=== PATIENT | male | born 1975 | race Caucasian/White ===

== ENCOUNTER 2017-02-18 09:55 | Emergency (ER) | payer SELFPAY ==
[~2017-02-18] VITALS: Ht 175.3 cm; Wt 70.0 kg
[2017-02-18 09:56] VITALS: BP 129/80; PULSE 110; RESP 20; TEMP 98.3; O2SAT 98
[2017-02-18] MEDS ORDERED: SODIUM CHLOR 0.9% 1000 ML INJ 1,000 ML IV ONE (10:53)
--- NOTE | 2017-02-18 10:55 | PD ---
HPI Chief Complaint: Flank/Kidney Pain Time Seen by Provider: 10:47 Travel History International Travel<30 days: No Contact w/Intl Traveler<30days: No Traveled to known affect area: No History of Present Illness HPI 41-year-old male here with bilateral flank pain. Symptoms started spontaneously last night while he was sleeping. The pain is a sharp pain that is constant, no aggravating or alleviating factors. Associated with some hematuria, nausea. He has had multiple kidney stones in the past, one time requiring lithotripsy. This feels similar. He has not used any medication for symptom relief. He has no other complaints. PFS Past Medical History ?: Not Social History Alcohol Use: No Tobacco Use: Yes Allergies-Medications (Allergen,Severity, Reaction): Coded Allergies: Nonsteroidal Anti-Inflammatory Agts (Verified Allergy, Unknown, 02/18/17) Reported Meds & Prescriptions Reported Meds & Active Scripts Active No Active Prescriptions or Reported Medications Review of Systems Except as stated in HPI: all other systems reviewed are Neg Physical Exam Narrative GENERAL: Well-developed well-nourished male in no acute distress SKIN: Warm and dry. HEAD: Atraumatic. Normocephalic. EYES: Pupils equal and round. No scleral icterus. No injection or drainage. ENT: No nasal bleeding or discharge. Mucous membranes pink and moist. NECK: Trachea midline. No JVD. CARDIOVASCULAR: Regular rate and rhythm. No murmur appreciated. RESPIRATORY: No accessory muscle use. Clear to auscultation. Breath sounds equal bilaterally. GASTROINTESTINAL: Abdomen soft, non-tender, nondistended. Hepatic and splenic margins not palpable. MUSCULOSKELETAL: No obvious deformities. Bilateral CVA tenderness. No tenderness to palpation along the thoracic or lumbar midline spine. NEUROLOGICAL: Awake and alert. No obvious cranial nerve deficits. Motor grossly within normal limits. Normal speech. Data Data Last Documented VS Vital Signs Date Time Temp Pulse Resp B/P Pulse Ox O2 Delivery O2 Flow Rate FiO2 02/18/17 11:00 92 16 124/75 100 Room Air 02/18/17 09:56 98.3 Orders Urinalysis - C+S If Indicated (02/18/17 10:30) Complete Blood Count With Diff (02/18/17 10:53) Comprehensive Metabolic Panel (02/18/17 10:53) Ct Abd/Pel W/O Iv Contrast (02/18/17 10:53) Iv Access Insert/Monitor (02/18/17 10:53) Morphine Inj (Morphine Inj) (02/18/17 11:00) Ondansetron Inj (Zofran Inj) (02/18/17 11:00) Sodium Chlor 0.9% 1000 Ml Inj (Ns 1000 M (02/18/17 10:53) Labs Laboratory Tests Test 02/18/17 02/18/17 10:40 12:40 Urine Color YELLOW Urine Turbidity CLEAR Urine pH 6.0 Urine Specific Wilmot 1.019 Urine Protein TRACE mg/dL Urine Glucose (UA) NEG mg/dL Urine Ketones 10 mg/dL Urine Occult Blood MOD Urine Nitrite NEG Urine Bilirubin NEG Urine Urobilinogen LESS THAN 2.0 MG/DL Urine Leukocyte Esterase NEG Urine RBC 140 /hpf Urine WBC 7 /hpf Urine Bacteria RARE /hpf Urine Mucus FEW /lpf Microscopic Urinalysis Comment CULT NOT INDICATED White Blood Count 7.9 TH/MM3 Red Blood Count 4.41 MIL/MM3 Hemoglobin 14.2 GM/DL Hematocrit 42.0 % Mean Corpuscular Volume 95.2 FL Mean Corpuscular Hemoglobin 32.1 PG Mean Corpuscular Hemoglobin 33.7 % Concent Red Cell Distribution Width 13.5 % Platelet Count 239 TH/MM3 Mean Platelet Volume 8.5 FL Neutrophils (%) (Auto) 82.8 % Lymphocytes (%) (Auto) 12.1 % Monocytes (%) (Auto) 4.4 % Eosinophils (%) (Auto) 0.4 % Basophils (%) (Auto) 0.3 % Neutrophils # (Auto) 6.5 TH/MM3 Lymphocytes # (Auto) 1.0 TH/MM3 Monocytes # (Auto) 0.3 TH/MM3 Eosinophils # (Auto) 0.0 TH/MM3 Basophils # (Auto) 0.0 TH/MM3 CBC Comment DIFF FINAL Differential Comment Sodium Level 139 MEQ/L Potassium Level 4.4 MEQ/L Chloride Level 105 MEQ/L Carbon Dioxide Level 26.1 MEQ/L Anion Gap 8 MEQ/L Blood Urea Nitrogen 13 MG/DL Creatinine 0.96 MG/DL Estimat Glomerular Filtration 87 ML/MIN Rate Random Glucose 98 MG/DL Calcium Level 9.1 MG/DL Total Bilirubin 1.4 MG/DL Aspartate Amino Transf 14 U/L (AST/SGOT) Alanine Aminotransferase 15 U/L (ALT/SGPT) Alkaline Phosphatase 98 U/L Total Protein 8.4 GM/DL Albumin 4.1 GM/DL [facility] Medical Decision Making Medical Screen Exam Complete: Yes Emergency Medical Condition: Yes Medical Record Reviewed: Yes Differential Diagnosis Renal stone, hydronephrosis, pyelonephritis, muscle spasm Narrative Course 41-year-old male with one-day history of bilateral flank pain, nausea. He has a history of renal stones the past, once requiring lithotripsy. Plan is for basic lab work, CT abdomen and pelvis, IV fluids, pain medication, antiemetics. Lab work and imaging studies have been reviewed. His urinalysis reveals large hematuria. Otherwise his laboratory was unremarkable. CT of the abdomen and pelvis reveals a nonobstructing small right kidney stone. No evidence of an obstructing kidney stone or hydronephrosis that could be the etiology of his bilateral flank pain. Of note, his [facility] records reveals recent narcotic prescriptions including a 120 tablet prescription of oxycodone that was filled on January 31. He also had a 30 tablet of morphine filled on January 17, 120 mg tablet prescription of oxycodone filled on January 01, 105 tablet prescription of oxycodone filled on December 03. He told the nurse that he did not have any recent narcotic use and given his lack of findings and CT I suspect seeking behavior. He is stable for discharge. Diagnosis Primary Impression: Bilateral flank pain Additional Instructions: Take [id number] Tylenol as needed for pain per dosing instructions on the bottle. Stay well hydrated. Follow-up with primary care physician as needed. Return for any emergent medical conditions. Med/Other Pt SpecificInfo: No Change to Meds Scripts No Active Prescriptions or Reported Meds Disposition: 01 DISCHARGE HOME Condition: Stable Marcell Noriega Feb 18, 2017 10:55
[2017-02-18 11:00] VITALS: BP 124/75; PULSE 92; RESP 16; O2SAT 100
[2017-02-18] MEDS ORDERED: ONDANSETRON HCL 4 MG/2 ML VIAL IVP ONE (11:00)
[2017-02-18] MEDS ORDERED: MORPHINE SULFATE 4 MG/ML INJ IV ONE (11:00)
[2017-02-18 11:07] LABS: BACTERIA, URINE RARE /hpf; BLOOD, URINE MOD (NEG); COMMENT (UR) CULT NOT INDICATED; CULTURE IF INDICATED CULT NOT INDICATED; GLUCOSE,URINE NEG (NEG); KETONE, URINE 10 mg/dL (NEG); MUCUS URINE FEW /lpf (OCC); NITRITE,URINE NEG (NEG); URINE COLOR YELLOW (YELLW/STRAW)
[2017-02-18 11:48] LABS: ALKALINE PHOSPHATASE 98 U/L (45-117); TOTAL BILIRUBIN ADULT 1.4 MG/DL (0.2-1.0)
--- NOTE | 2017-02-18 12:54 | RADRPT ---
EXAM DATE/TIME: 02/18/2017 12:19 [facility] COMPARISON: No previous studies available for comparison. INDICATIONS : Bilateral flank pain with history of renal stones. ORAL CONTRAST: No oral contrast ingested. RADIATION DOSE: 9.51 CTDIvol (mGy) MEDICAL HISTORY : None SURGICAL HISTORY : None. ENCOUNTER: Initial ACUITY: 1 day PAIN SCALE: 6/10 LOCATION: Bilateral flank TECHNIQUE: Volumetric scanning of the abdomen and pelvis was performed. Using automated exposure control and ad justment of the mA and/or kV according to patient size, radiation dose was kept as low as reasonably achievable to obtain optimal diagnostic quality images. DICOM format image data is available electro nically for review and comparison. FINDINGS: At the lower pole of the right kidney a nonobstructing calculus is present measuring 2.2 mm. There is no hydronephrosis. Spleen, pancreas, adrenal glands, visualized portions of the liver and gallbladde r are normal. Urinary bladder, prostate unremarkable. No evidence of bowel obstruction, free fluid or free air. Appendix is normal. No adenopathy or aneurysm. L4-S1 posterior bella and transpedicular scre w fixation and intervertebral fusion hardware at L4-5 and L5-S1. Post laminectomy changes are present . CONCLUSION: 1. Nonobstructing right renal calculus. 2. Postsurgical changes lumbar spine. Van Diehl MD on February 18, 2017 at 12:50 Board Certified Radiologist. This report was verified electronically.
[2017-02-18 12:56] LABS: AUTOMATED NEUTROPHIL # 6.5 TH/MM3 (1.8-7.7); BASOPHIL % 0.3 % (0.0-2.0); EOSINOPHIL % 0.4 % (0.0-4.0); HEMO FLAGS DIFF FINAL; LYMPH % 12.1 % (9.0-44.0); MEAN CELL VOLUME 95.2 FL (80.0-100.0); MEAN CORPUSCULAR HEMOGLOBIN 32.1 PG (27.0-34.0); MEAN CORPUSCULAR HGB CONC 33.7 % (32.0-36.0); MONO % 4.4 % (0.0-8.0); NEUT % 82.8 % (16.0-70.0); PLATELET COUNT 239 TH/MM3 (150-450); RED BLOOD COUNT 4.41 MIL/MM3 (4.50-5.90); RED CELL DISTRIBUTION WIDTH 13.5 % (11.6-17.2); WHITE BLOOD COUNT 7.9 TH/MM3 (4.0-11.0)
[2017-02-18 13:06] LABS: ALT (GPT) 15 U/L (12-78); ANION GAP 8 MEQ/L (5-15); AST (GOT) 14 U/L (15-37); BICARBONATE 26.1 MEQ/L (21.0-32.0); BLOOD UREA NITROGEN 13 MG/DL (7-18); CHLORIDE 105 MEQ/L (98-107); GLOMERULAR FILTRATION RATE 87 ML/MIN (>89); POTASSIUM 4.4 MEQ/L (3.5-5.1); SODIUM (NA) 139 MEQ/L (136-145)
== END 2017-02-18 14:05 | disposition home or self-care (01) ==
LOC: NEPD 09:55
DX: R10.32 Left lower quadrant pain (principal); R10.31 Right lower quadrant pain
CPT/HCPCS: 74176; 80053; 81001; 85025; 96361; 96374; 96375; 99285; J2270; J2405; J7030